=== PATIENT | female | born 1960 | race Caucasian/White ===

== ENCOUNTER 2018-08-28 22:22 | Inpatient (IN) | payer OTHER ==
[~2018-08-28] VITALS: Ht 162.6 cm; Wt 55.8 kg
[~2018-08-28 22:22] MED LIST: ACET-2139 PO; LEVO75TA7 PO; ROSU10TA PO
--- NOTE | 2018-08-28 22:41 | NUR ---
TO ER BED 12 C/O SUBSTERNAL CHEST PAIN. AA/OX4. NON RADIATING PAIN, PRESSURE TYPE PAIN. 06/25 PAIN. NO N/V/D. NO S/S SOB. SKIN PINK, WARM, DRY. AMBULATED TO BED WITH STABLE GAIT. MOVES ALL EXTREMITIES WELL. NAD. VSS. STABLE CONDITION. WILL CONTINUE TO MONITOR.
[2018-08-28 22:56] LABS: BASOPHILS % (AUTO) 0.3 % (0.0-2.0); HEMATOCRIT 43 % (33-45); HEMOGLOBIN 13.6 g/dL (11.5-14.8); LYMPHOCYTES # (AUTO) 1.3 /CMM (0.8-4.8); LYMPHOCYTES % (AUTO) 9.6 % (20.0-44.0); MEAN CORPUSCULAR HGB CONC 32 g/dl (31.0-36.0); MEAN CORPUSCULAR VOLUME 87 fL (82-100); MONOCYTES # (AUTO) 0.4 /CMM (0.1-1.30); MONOCYTES % (AUTO) 3.3 % (2.0-12.0); NEUTROPHILS # (AUTO) 11.8 /CMM (1.8-8.9); NEUTROPHILS % (AUTO) 86.8 % (43.0-81.0); PLATELET COUNT (AUTO) 295 /CMM (150-450); RDW COEFFICIENT OF VARIATION 13.6 (11.5-15.0); RED BLOOD CELL COUNT(AUTO) 4.88 MIL/uL (4.0-5.2); WHITE BLOOD COUNT (AUTO) 13.6 K/uL (4.3-11.0)
[2018-08-28 23:08] LABS: CALCIUM, SERUM 9.8 mg/dL (8.5-10.1); CARBON DIOXIDE 23 mmol/L (21-32); CHLORIDE 103 mmol/L (98-107); CREATININE 0.7 mg/dL (0.6-1.3); GLUCOSE 108 mg/dL (74-106); POTASSIUM 4.3 mmol/L (3.5-5.1); SODIUM SERUM 139 mmol/L (136-145); UREA NITROGEN, BLOOD 12 mg/dL (7-18)
[2018-08-28 23:12] LABS: TROPONIN I < 0.017 ng/mL (0.00-0.056)
--- NOTE | 2018-08-28 23:13 | NUR ---
Patient is resting comfortably in bed with eyes closed. Easily aroused. VSS. STABLE CONDITION. SAFETY MEASURES IN PLACE. CALL LIGHT WITHIN REACH.
[2018-08-28 23:15] LABS: INR 0.9 (0.87-1.13)
[2018-08-28 23:21] LABS: ALANINE AMINOTRANSFERASE 17 U/L (12-78); ALBUMIN 4.1 g/dL (3.4-5.0); ALKALINE PHOSPHATASE 78 U/L (46-116); ASPARTATE AMINOTRANSFERASE 19 U/L (15-37); B-TYPE NATRIURETIC PEPTIDE 217 PG/ML (0-125); BILIRUBIN,DIRECT 0.1 mg/dL (0.0-0.2); BILIRUBIN,TOTAL 0.3 mg/dL (0.2-1.0); TOTAL PROTEIN, SERUM 8.5 g/dL (6.4-8.2)
--- NOTE | 2018-08-29 00:20 | NUR ---
PT CONTINUES TO REST COMFORTABLY IN BED. EASILY AROUSED. WHEN AROUSED PT AA/OX4. STABLE CONDITION. VSS. NAD.
--- NOTE | 2018-08-29 01:07 | NUR ---
CALLED [facility] FOR PANEL ADMISSION. DR. ROMAN CHERRY.
--- NOTE | 2018-08-29 01:13 | NUR ---
DR. OWENS SPEAKING TO DR. SHAY REGARDING ADMISSION.
--- NOTE | 2018-08-29 01:16 | NUR ---
PT ASSIGNED TO 323-2 TELE
--- NOTE | 2018-08-29 01:21 | NUR ---
REPORT GIVEN TO JC PUENTE FOR SAM BED [id number]
[2018-08-29] MEDS ORDERED: MAGNESIUM HYDROXIDE 30 ML UDC PO PRN (01:30)
[2018-08-29] MEDS ORDERED: ONDANSETRON HCL/PF 4 MG/2 ML VIAL IVP PRN (01:30)
[2018-08-29] MEDS ORDERED: ZOLPIDEM TARTRATE 5 MG TABLET PO PRN (01:30)
[2018-08-29] MEDS ORDERED: ACETAMINOPHEN 325 MG TABLET PO PRN (01:30)
[2018-08-29 01:55] VITALS: BP 136/82
--- NOTE | 2018-08-29 01:55 | NUR ---
RN ADMITTING NOTES PATIENT BROUGHT INTO THE UNIT VIA GURNEY FROM THE ER VIA ACLS TRANSPORT, IN NO ACUTE DISTRESS, DENIES PAIN, NO SOB, BREATHING EVEN AND UNLABORED. PT IS ALERT AND ORIENTED X 4, VERBALLY RESPONSIVE AND CAN MAKE NEEDS KNOWN. PT ABLE TO AMBULATE SAFELY FROM BED TO BATHROOM WITH STANDBY ASSIST. ORIENTED PT TO UNIT, ROOM, ADMISSION PROCESS, CALL LIGHT AND USE OF CALL LIGHT. PATIENT VERBALIZED UNDERSTANDING. PATIENT PLACED ON TELE MONITORING WITH SR @ 68. PT WITH REQUEST THAT SHE CAN ONLY TOLERATE SOFT DIET DUE TO ORAL SURGERY THAT SHE HAD ON Thursday08/27/18. DIET TEXTURE CHANGED TO SOFT. ALL PATIENT'S NEEDS ATTENDED TO, PLACED CALL LIGHT WITHIN EASY REACH. WILL CONTINUE TO MONITOR. BED IB LOW POSITION AND LOCKED IN PLACE.
--- NOTE | 2018-08-29 02:00 | NUR ---
PT TRANSPORTED TO TELE UNIT WITH STABLE CONDITION. VSS. NAD. VIA ACLS PROTOCOL.
[2018-08-29] MEDS ORDERED: METF-440 PO (02:51)
[2018-08-29] MEDS ORDERED: IBUP-1957 PO (02:51)
[2018-08-29] MEDS ORDERED: CLIN300C11 PO (02:51)
[2018-08-29 04:00] VITALS: BP 120/69
--- NOTE | 2018-08-29 07:00 | NUR ---
RN CLOSING NOTES PATIENT IN BED, ALERT AND ORIENTED X 4, NO SOB NOTED, IN NO ACUTE DISTRESS. PT DENIES CHEST PAIN, ON TELE MONITORING WITH SINUS RHYTHM AT 60-70s. ALL PATIENT'S NEEDS ATTENDED TO THROUGHOUT THE SHIFT. PLACED CALL LIGHT IN EASY REACH, BED IN LOW POSITION AND LOCKED IN PLACE. PAGED MD FOR RECONCILIATION OF REST OF HOME MEDS, PER DR. OWENS HOSPITALIST IN AM WILL RECONCILE MEDICATION AFTER LAB WORKS. WILL ENDORSE TO AM SHIFT NURSE FOR CONTINUITY OF CARE.
[2018-08-29] MEDS ORDERED: PANTOPRAZOLE 40 MG TABLET.DR PO SCH (07:30)
[2018-08-29] MEDS ORDERED: LEVOTHYROXINE SODIUM 75 MCG TABLET PO SCH (07:30)
--- NOTE | 2018-08-29 07:43 | NUR ---
WEB USER EXPERIENCE STRATEGIST OPENING NOTES PT WAS RECEIVED IN BED AT LOWEST AND LOCKED POSITION WITH SIDE RAILS UP X2, A/O X4, NO S/S OF PAIN OR DISTRESS NOTED, BREATHING IS EVEN AND UNLABORED ON RA, PT IS ON TELE MONITOR SHOWING NSR 60-70S, IV IS PATENT AND INTACT, SAFETY PRECAUTIONS IN PLACE, CALL LIGHT WITHIN REACH, WILL MONITOR ACCORDINGLY
[2018-08-29 08:00] VITALS: BP 103/57
[2018-08-29] MEDS ORDERED: IOHEXOL-350 100 ML VIAL IV ONE ×3 (08:50→15:07)
[2018-08-29] MEDS ORDERED: CT SWABBABLE VALVE TRANS SET 1 EA INFUS.SET MC ONE ×2 (08:50→15:07)
[2018-08-29] MEDS ORDERED: IV NS 0.9% 250 ML IV ONE ×2 (08:51→15:07)
[2018-08-29] MEDS ORDERED: CLOPIDOGREL BISULFATE 75 MG TABLET PO SCH (09:00)
--- NOTE | 2018-08-29 09:00 | NUR ---
PT WAS SUPPOSED TO UNDERGO CT PULMONARY ANGIO BUT DOWN AT CT PT WAS NOTED AND STATED TO HAVE AN ALLERGY TO IODINE, PT WAS BROUGHT BACK UP AND DR. MONTIEL WAS NOTIFIED OF SITUATION, ORDERS FOR SOLUMEDROL 100 MG IV AND BENADRYL 25 MG IV WERE ORDERED, WILL IMPLEMENT AND MONITOR ACCORDINGLY
[2018-08-29 09:10] LABS: BASOPHILS % (AUTO) 0.3 % (0.0-2.0); EOSINOPHILS % (AUTO) 0.1 % (0.0-6.0); HEMATOCRIT 39 % (33-45); HEMOGLOBIN 12.6 g/dL (11.5-14.8); LYMPHOCYTES # (AUTO) 2.6 /CMM (0.8-4.8); LYMPHOCYTES % (AUTO) 19.8 % (20.0-44.0); MEAN CORPUSCULAR HGB CONC 33 g/dl (31.0-36.0); MEAN CORPUSCULAR VOLUME 87 fL (82-100); MONOCYTES # (AUTO) 0.5 /CMM (0.1-1.30); MONOCYTES % (AUTO) 4.1 % (2.0-12.0); NEUTROPHILS # (AUTO) 9.8 /CMM (1.8-8.9); NEUTROPHILS % (AUTO) 75.7 % (43.0-81.0); PLATELET COUNT (AUTO) 285 /CMM (150-450); RDW COEFFICIENT OF VARIATION 13.8 (11.5-15.0); RED BLOOD CELL COUNT(AUTO) 4.43 MIL/uL (4.0-5.2)
[2018-08-29 09:26] LABS: ALANINE AMINOTRANSFERASE 15 U/L (12-78); ALBUMIN 3.5 g/dL (3.4-5.0); ALKALINE PHOSPHATASE 64 U/L (46-116); ASPARTATE AMINOTRANSFERASE 13 U/L (15-37); BILIRUBIN,TOTAL 0.3 mg/dL (0.2-1.0); CALCIUM, SERUM 9.3 mg/dL (8.5-10.1); CARBON DIOXIDE 25 mmol/L (21-32); CHLORIDE 104 mmol/L (98-107); CREATININE 0.7 mg/dL (0.6-1.3); GLUCOSE 149 mg/dL (74-106); MAGNESIUM 1.9 mg/dL (1.8-2.4); PHOSPHORUS 3.6 mg/dL (2.5-4.9); POTASSIUM 3.7 mmol/L (3.5-5.1); SODIUM SERUM 139 mmol/L (136-145); TOTAL PROTEIN, SERUM 7.4 g/dL (6.4-8.2); UREA NITROGEN, BLOOD 14 mg/dL (7-18)
[2018-08-29 09:30] LABS: TROPONIN I < 0.017 ng/mL (0.00-0.056)
[2018-08-29 09:35] LABS: CHOLESTEROL 133 mg/dL (<200); HDL CHOLESTEROL 66 mg/dL (40-60); LDL 52 mg/dL (0-99); THYROID STIMULATING HORMONE 0.012 uIU/mL (0.358-3.74); TRIGLYCERIDES 91 mg/dL (30-150)
--- NOTE | 2018-08-29 09:43 | NUR ---
pt states that she is allergic to iv contrast. attending nurse was notified . stated she would contact ordering md
[2018-08-29 09:50] LABS: APPEARANCE,URINE CLEAR (CLEAR); BILIRUBIN,URINE NEGATIVE (NEGATIVE); BLOOD, URINE 1+ Ery/uL (NEGATIVE); COLOR,URINE YELLOW (YELLOW); KETONES,URINE NEGATIVE (NEGATIVE); LEUKOCYTE ESTERASE ,URINE TRACE (NEGATIVE); NITRITE, URINE NEGATIVE (NEGATIVE); PROTEIN,URINE NEGATIVE (NEGATIVE); UGLUCOSE NEGATIVE (NEGATIVE); UROBILINOGEN,URINE 0.2 EU/dL (0.2)
[2018-08-29] MEDS ORDERED: methylPREDNISolone SOD SUCC 125 MG/2ML VIAL IV ONE (10:00)
[2018-08-29] MEDS ORDERED: diphenhydrAMINE HCL 50 MG/ML VIAL IV ONE (10:00)
--- NOTE | 2018-08-29 10:00 | NUR ---
RADIOLOGY WAS NOTIFIED OF DOCTORS ORDERS AND THAT HE STILL WANTED TO CONTINUE PROCEDURE LONG THE MEDS WERE GIVEN, RADIOLOGY NOTIFIED AND SAID THEY WOULD CALL BACK AT LEAST 20 MINUTES BEFORE THE PROCEDURE IN ORDER TO GIVE IV MEDS BEFORE HAND
[2018-08-29 10:20] LABS: BACTERIA,URINE Rare /HPF (None Seen); CALCIUM OXALATE CRYSTALS,UR Few /HPF (None Seen); SQUAMOUS EPITHELIAL CELL,UR Rare /HPF (None Seen)
--- NOTE | 2018-08-29 15:10 | NUR ---
PT WAS TOLD ABOUT RISK OF PROCEDURES AGAIN BEFORE HEADING DOWN FOR PROCEDURE, SHE AGREED TO THEM, PT WAS TRANSPORTED DOWN TO RADIOLOGY
[2018-08-29 16:00] VITALS: BP 110/74
[2018-08-29] MEDS ORDERED: ATORVASTATIN 10 MG TABLET PO SCH (22:00)
[2018-08-29] MEDS ORDERED: Medication Not On Formulary EA (Rosuvastatin Calcium (Crestor) 10 MG) PO SCH (22:00)
== END 2018-08-29 18:43 | disposition home or self-care (01) | DRG 203 ==
LOC: ER 22:25 → TELE 08-29 01:22 → MED 08-29 09:10
PROVIDERS: ADMIT Internal Medicine; ATTEND Internal Medicine
DX: M94.0 Chondrocostal junction syndrome [Tietze] (principal); E03.9 Hypothyroidism, unspecified; E11.9 Type 2 diabetes mellitus without complications; E78.5 Hyperlipidemia, unspecified; I10 Essential (primary) hypertension; J44.9 Chronic obstructive pulmonary disease, unspecified; Z87.442 Personal history of urinary calculi; Z82.49 Family history of ischemic heart disease and other diseases of the circulatory system; Z98.890 Other specified postprocedural states; Z87.891 Personal history of nicotine dependence; Z88.0 Allergy status to penicillin; Z79.84 Long term (current) use of oral hypoglycemic drugs
CPT/HCPCS: 36415; 71045-TC; 80048-TC; 80053-TC; 80061-TC; 80076-TC; 81000-TC; 83735-TC; 83880; 84100-TC; 84443-TC; 84484-TC; 85025-TC; 85730-TC; 87081-TC; 87086-TC; 93307-TC; A4606; G0378; J1200; J2930; J7050; Q9967; Z7610